=== PATIENT | female | born 1940 | race African-American/Black ===

== ENCOUNTER 2021-01-21 22:18 | Inpatient (IN) | payer MEDICARE, MEDICAID ==
[~2021-01-21] VITALS: Ht 157.5 cm; Wt 69.4 kg
[~2021-01-21 22:18] MED LIST: ASPI-1497 PO; BRIM10DR2 EACHEYE; CALC-1042 PO; CHOL400D7 PO; LOSA100T32 PO; MIRA25TA PO
[2021-01-21 22:30] VITALS: BP 112/47
[2021-01-21] MEDS ORDERED: ONDANSETRON HCL 4MG/2ML INJ IV PRN (23:30)
[2021-01-21] MEDS ORDERED: IPRATROPIUM/ALBUTEROL 0.5-3(2.5)MG/3ML NEB HHN PRN (23:30)
[2021-01-21] MEDS ORDERED: GUAIFENESIN 200MG/10ML SUGAR FREE UDC PO PRN (23:30)
[2021-01-22] MEDS: HYDRALAZINE HCL 50MG TABLET PO SCH ×3 (05:51→21:13)
[2021-01-22 06:50] LABS: BASOPHILS % 0.6 % (0.0-2.0); EOSINOPHILS % 5.4 % (0.0-5.0); HEMATOCRIT. 32.6 % (36.0-48.0); HEMOGLOBIN. 11.3 g/dL (12.0-16.0); LYMPHOCYTES % 21.2 % (20.0-50.0); MEAN PLATELET VOLUME 8.2 fl (7.4-10.4); MONOCYTES % 14.3 % (2.0-8.0); NEUTROPHILS % 58.5 % (40.0-76.0); PLATELET 210 x1000/uL (130-400); RED BLOOD CELL COUNT 3.75 mill/uL (4.2-5.4); RED CELL DISTRIBUTION WIDTH 13.8 % (11.6-14.6)
[2021-01-22 08:00] VITALS: BP 127/60
[2021-01-22] MEDS: TOBRAMYCIN/DEXAMETH 0.1/0.3% OPHTH SUSP 2.5ML BOTHEYE SCH ×2 (08:36→17:00)
[2021-01-22] MEDS: POLYETHYLENE GLYCOL 3350 (17GM) 1 DOSE PACK PO SCH (08:37)
[2021-01-22] MEDS: ENOXAPARIN 30MG/0.3ML SYR SUBCUT SCH (08:37)
[2021-01-22] MEDS: DOCUSATE SODIUM 100MG CAPSULE PO PRN (08:38)
[2021-01-22] MEDS: LABETALOL HCL 100MG TABLET PO SCH ×2 (08:38→21:13)
[2021-01-22] MEDS: FAMOTIDINE 20MG/2ML VIAL IV SCH (08:38)
[2021-01-22] MEDS: LOSARTAN POTASSIUM 100 MG TABLET PO SCH (08:38)
[2021-01-22] MEDS: ERYTHROMYCIN BASE 0.5% OPHTH OINT 3.5GM BOTHEYE SCH ×2 (08:39→17:00)
[2021-01-22] MEDS: SODIUM CHLORIDE 0.9% 1,000 ML IV SCH (12:16)
[2021-01-22 20:00] VITALS: BP 117/54
[2021-01-23] MEDS: SODIUM CHLORIDE 0.9% 1,000 ML IV SCH ×2 (01:34→20:54)
[2021-01-23] MEDS: HYDRALAZINE HCL 50MG TABLET PO SCH ×3 (05:07→21:00)
[2021-01-23 08:00] VITALS: BP 143/63
[2021-01-23] MEDS: LOSARTAN POTASSIUM 100 MG TABLET PO SCH (09:19)
[2021-01-23] MEDS: ENOXAPARIN 30MG/0.3ML SYR SUBCUT SCH (09:19)
[2021-01-23] MEDS: LABETALOL HCL 100MG TABLET PO SCH ×2 (09:19→20:55)
[2021-01-23] MEDS: POLYETHYLENE GLYCOL 3350 (17GM) 1 DOSE PACK PO SCH (09:19)
[2021-01-23] MEDS: DOCUSATE SODIUM 100MG CAPSULE PO PRN (09:19)
[2021-01-23] MEDS: FAMOTIDINE 20MG/2ML VIAL IV SCH (09:19)
[2021-01-23] MEDS: ERYTHROMYCIN BASE 0.5% OPHTH OINT 3.5GM BOTHEYE SCH ×2 (09:20→18:15)
[2021-01-23] MEDS: TOBRAMYCIN/DEXAMETH 0.1/0.3% OPHTH SUSP 2.5ML BOTHEYE SCH ×2 (09:20→18:14)
[2021-01-23 10:24] LABS: HEMATOCRIT. 33.1 % (36.0-48.0); HEMOGLOBIN. 11.4 g/dL (12.0-16.0); MEAN CORPUSCULAR HEMOGLOBIN 30.2 pg (28.0-32.0); MEAN CORPUSCULAR VOLUME 87.7 fL (81.0-99.0); MEAN PLATELET VOLUME 8.2 fl (7.4-10.4); PLATELET 250 x1000/uL (130-400); RED BLOOD CELL COUNT 3.78 mill/uL (4.2-5.4); RED CELL DISTRIBUTION WIDTH 13.9 % (11.6-14.6)
[2021-01-23 10:38] LABS: CHLORIDE 105 mEq/L (98-107)
[2021-01-23 14:16] LABS: PLATELET ESTIMATE NORMAL
[2021-01-23 20:00] VITALS: BP 122/52
[2021-01-24] MEDS: HYDRALAZINE HCL 50MG TABLET PO SCH ×3 (06:08→21:01)
[2021-01-24 08:08] VITALS: BP 140/62
[2021-01-24] MEDS: ENOXAPARIN 30MG/0.3ML SYR SUBCUT SCH (08:19)
[2021-01-24] MEDS: FAMOTIDINE 20MG TABLET PO SCH (08:19)
[2021-01-24] MEDS: LABETALOL HCL 100MG TABLET PO SCH ×2 (08:19→20:48)
[2021-01-24] MEDS: POLYETHYLENE GLYCOL 3350 (17GM) 1 DOSE PACK PO SCH (08:19)
[2021-01-24] MEDS: LOSARTAN POTASSIUM 100 MG TABLET PO SCH (08:19)
[2021-01-24] MEDS: ERYTHROMYCIN BASE 0.5% OPHTH OINT 3.5GM BOTHEYE SCH ×2 (08:20→17:15)
[2021-01-24] MEDS: TOBRAMYCIN/DEXAMETH 0.1/0.3% OPHTH SUSP 2.5ML BOTHEYE SCH ×2 (08:20→17:15)
[2021-01-24] MEDS: SODIUM CHLORIDE 0.9% 1,000 ML IV SCH (08:20)
[2021-01-24 11:00] LABS: CREATINE KINASE 72 IU/L (26-192)
[2021-01-24 17:17] LABS: CLARITY URINE CLEAR (CLEAR); COLOR URINE YELLOW (YELLOW); KETONES URINE NEGATIVE (NEGATIVE); LEUKOCYTE ESTERASE URINE NEGATIVE (NEGATIVE); NITRITE URINE NEGATIVE (NEGATIVE); OCCULT BLOOD URINE NEGATIVE (NEGATIVE); PROTEIN URINE NEGATIVE (NEGATIVE); SPECIFIC GRAVITY URINE 1.011 (1.005-1.030); UROBILINOGEN URINE 0.2 E.U./dL (0.2-1.0)
[2021-01-24 20:00] VITALS: BP 152/63
[2021-01-24] MEDS: ACETAMINOPHEN 325MG TABLET PO PRN (23:33)
[2021-01-25] MEDS: HYDRALAZINE HCL 50MG TABLET PO SCH ×3 (05:58→21:52)
[2021-01-25 08:00] VITALS: BP 162/55
[2021-01-25] MEDS: FAMOTIDINE 20MG TABLET PO SCH (09:08)
[2021-01-25] MEDS: POLYETHYLENE GLYCOL 3350 (17GM) 1 DOSE PACK PO SCH (09:09)
[2021-01-25] MEDS: ENOXAPARIN 30MG/0.3ML SYR SUBCUT SCH (09:09)
[2021-01-25] MEDS: LABETALOL HCL 100MG TABLET PO SCH ×2 (09:09→21:51)
[2021-01-25] MEDS: TOBRAMYCIN/DEXAMETH 0.1/0.3% OPHTH SUSP 2.5ML BOTHEYE SCH ×2 (09:10→16:30)
[2021-01-25] MEDS: ERYTHROMYCIN BASE 0.5% OPHTH OINT 3.5GM BOTHEYE SCH ×2 (09:10→16:29)
[2021-01-25] MEDS: CLONIDINE 0.1MG TABLET PO PRN (09:26)
[2021-01-25 10:04] LABS: BASOPHILS % 0.9 % (0.0-2.0); EOSINOPHILS % 8.8 % (0.0-5.0); HEMATOCRIT. 32.5 % (36.0-48.0); HEMOGLOBIN. 11.3 g/dL (12.0-16.0); MEAN CORPUSCULAR HEMOGLOBIN 31.3 pg (28.0-32.0); MEAN CORPUSCULAR VOLUME 89.8 fL (81.0-99.0); MEAN PLATELET VOLUME 8.8 fl (7.4-10.4); MONOCYTES % 11.2 % (2.0-8.0); NEUTROPHILS % 58.1 % (40.0-76.0); PLATELET 250 x1000/uL (130-400); RED BLOOD CELL COUNT 3.61 mill/uL (4.2-5.4); RED CELL DISTRIBUTION WIDTH 13.6 % (11.6-14.6)
[2021-01-25] MEDS: ACETAMINOPHEN 325MG TABLET PO PRN (12:49)
[2021-01-25 20:00] VITALS: BP 142/98
[2021-01-26] MEDS: HYDRALAZINE HCL 50MG TABLET PO SCH (06:02)
[2021-01-26] MEDS: ACETAMINOPHEN 325MG TABLET PO PRN ×2 (06:08→08:09)
[2021-01-26 07:11] LABS: BASOPHILS % 1.5 % (0.0-2.0); EOSINOPHILS % 4.4 % (0.0-5.0); HEMOGLOBIN. 10.8 g/dL (12.0-16.0); LYMPHOCYTES % 21.8 % (20.0-50.0); MEAN CORPUSCULAR HEMOGLOBIN 30.5 pg (28.0-32.0); MEAN CORPUSCULAR VOLUME 90.4 fL (81.0-99.0); MEAN PLATELET VOLUME 8.4 fl (7.4-10.4); MONOCYTES % 10.6 % (2.0-8.0); NEUTROPHILS % 61.7 % (40.0-76.0); PLATELET 285 x1000/uL (130-400); RED BLOOD CELL COUNT 3.54 mill/uL (4.2-5.4); RED CELL DISTRIBUTION WIDTH 13.8 % (11.6-14.6)
[2021-01-26 07:29] VITALS: BP 159/64
[2021-01-26] MEDS: FAMOTIDINE 20MG TABLET PO SCH (08:08)
[2021-01-26] MEDS: POLYETHYLENE GLYCOL 3350 (17GM) 1 DOSE PACK PO SCH (08:08)
[2021-01-26] MEDS: LABETALOL HCL 100MG TABLET PO SCH ×2 (08:08→20:59)
[2021-01-26] MEDS: ENOXAPARIN 30MG/0.3ML SYR SUBCUT SCH (08:23)
[2021-01-26] MEDS: HYDRALAZINE HCL 100MG TABLET PO SCH ×2 (15:44→20:59)
[2021-01-26 20:00] VITALS: BP 146/56
[2021-01-27] MEDS: HYDRALAZINE HCL 100MG TABLET PO SCH ×3 (05:47→22:15)
[2021-01-27 07:38] VITALS: BP 143/66
[2021-01-27] MEDS: POLYETHYLENE GLYCOL 3350 (17GM) 1 DOSE PACK PO SCH (08:10)
[2021-01-27] MEDS: FAMOTIDINE 20MG TABLET PO SCH (08:10)
[2021-01-27] MEDS: LABETALOL HCL 100MG TABLET PO SCH ×2 (08:10→22:14)
[2021-01-27] MEDS: ENOXAPARIN 30MG/0.3ML SYR SUBCUT SCH (08:11)
[2021-01-27 13:11] LABS: ANTI-NUCLEAR ANTIBODIES DIRECT Negative (Negative)
[2021-01-27 19:26] LABS: CLARITY URINE TURBID (CLEAR); COLOR URINE RED (YELLOW); KETONES URINE NEGATIVE (NEGATIVE); LEUKOCYTE ESTERASE URINE 3+ (NEGATIVE); NITRITE URINE NEGATIVE (NEGATIVE); OCCULT BLOOD URINE 3+ (NEGATIVE); PROTEIN URINE 2+ (NEGATIVE); SPECIFIC GRAVITY URINE 1.011 (1.005-1.030); UROBILINOGEN URINE 0.2 E.U./dL (0.2-1.0)
[2021-01-27 20:00] VITALS: BP 125/57
[2021-01-27] MEDS: ACETAMINOPHEN 325MG TABLET PO PRN (22:20)
[2021-01-27] MEDS ORDERED: NITROFURANTOIN 100MG M/M CAPSULE PO SCH (22:45)
[2021-01-27] MEDS: SULFAMETHOXAZOLE/TRIMETHOPRIM 400/80MG TAB PO SCH (23:49)
[2021-01-28] MEDS: HYDRALAZINE HCL 100MG TABLET PO SCH ×3 (06:07→21:15)
[2021-01-28 07:14] LABS: BASOPHILS % 0.7 % (0.0-2.0); EOSINOPHILS % 4.1 % (0.0-5.0); HEMATOCRIT. 30.4 % (36.0-48.0); HEMOGLOBIN. 10.3 g/dL (12.0-16.0); LYMPHOCYTES % 19.5 % (20.0-50.0); MEAN CORPUSCULAR HEMOGLOBIN 29.6 pg (28.0-32.0); MEAN CORPUSCULAR VOLUME 87.8 fL (81.0-99.0); MEAN PLATELET VOLUME 8.1 fl (7.4-10.4); MONOCYTES % 10.5 % (2.0-8.0); NEUTROPHILS % 65.2 % (40.0-76.0); PLATELET 320 x1000/uL (130-400); RED BLOOD CELL COUNT 3.46 mill/uL (4.2-5.4); RED CELL DISTRIBUTION WIDTH 13.8 % (11.6-14.6)
[2021-01-28] MEDS: SULFAMETHOXAZOLE/TRIMETHOPRIM 400/80MG TAB PO SCH ×2 (08:13→21:14)
[2021-01-28] MEDS: POLYETHYLENE GLYCOL 3350 (17GM) 1 DOSE PACK PO SCH (08:13)
[2021-01-28] MEDS: LABETALOL HCL 100MG TABLET PO SCH ×2 (08:13→21:14)
[2021-01-28] MEDS: FAMOTIDINE 20MG TABLET PO SCH (08:13)
[2021-01-28 08:19] VITALS: BP 151/67
[2021-01-28 13:45] VITALS: BP 126/45
[2021-01-28] MEDS ORDERED: DIPHENHYDRAMINE 25MG CAPSULE PO PRN (16:15)
[2021-01-28 20:00] VITALS: BP 152/66
[2021-01-29] MEDS: HYDRALAZINE HCL 100MG TABLET PO SCH ×3 (05:40→21:01)
[2021-01-29 08:15] VITALS: BP 158/68
[2021-01-29] MEDS: LABETALOL HCL 100MG TABLET PO SCH ×2 (09:08→21:02)
[2021-01-29] MEDS: SULFAMETHOXAZOLE/TRIMETHOPRIM 400/80MG TAB PO SCH ×2 (09:08→21:01)
[2021-01-29] MEDS: FAMOTIDINE 20MG TABLET PO SCH (09:08)
[2021-01-29] MEDS: POLYETHYLENE GLYCOL 3350 (17GM) 1 DOSE PACK PO SCH (09:09)
[2021-01-29] MEDS: ENOXAPARIN 30MG/0.3ML SYR SUBCUT SCH (09:09)
[2021-01-29 20:00] VITALS: BP 147/67
[2021-01-29 23:00] VITALS: BP 137/61
[2021-01-30] MEDS: HYDRALAZINE HCL 100MG TABLET PO SCH ×3 (05:39→23:59)
[2021-01-30] MEDS: CLONIDINE 0.1MG TABLET PO PRN (05:41)
[2021-01-30 06:55] VITALS: BP 134/59
[2021-01-30] MEDS: SULFAMETHOXAZOLE/TRIMETHOPRIM 400/80MG TAB PO SCH ×2 (08:35→20:43)
[2021-01-30] MEDS: LABETALOL HCL 100MG TABLET PO SCH ×2 (08:35→20:44)
[2021-01-30] MEDS: POLYETHYLENE GLYCOL 3350 (17GM) 1 DOSE PACK PO SCH (08:36)
[2021-01-30] MEDS: ENOXAPARIN 30MG/0.3ML SYR SUBCUT SCH (08:36)
[2021-01-30] MEDS: FAMOTIDINE 20MG TABLET PO SCH (08:36)
[2021-01-30 14:18] LABS: BASOPHILS % 1.1 % (0.0-2.0); EOSINOPHILS % 3.7 % (0.0-5.0); HEMATOCRIT. 29.5 % (36.0-48.0); HEMOGLOBIN. 10.2 g/dL (12.0-16.0); LYMPHOCYTES % 18.1 % (20.0-50.0); MEAN CORPUSCULAR HEMOGLOBIN 31.1 pg (28.0-32.0); MEAN CORPUSCULAR VOLUME 89.8 fL (81.0-99.0); MEAN PLATELET VOLUME 7.9 fl (7.4-10.4); MONOCYTES % 12.8 % (2.0-8.0); NEUTROPHILS % 64.3 % (40.0-76.0); PLATELET 284 x1000/uL (130-400); RED BLOOD CELL COUNT 3.28 mill/uL (4.2-5.4); RED CELL DISTRIBUTION WIDTH 13.7 % (11.6-14.6)
[2021-01-30] MEDS ORDERED: DOXAZOSIN MESYLATE 2MG TABLET PO NR (14:45)
[2021-01-30 20:00] VITALS: BP 125/51
[2021-01-31] MEDS: HYDRALAZINE HCL 100MG TABLET PO SCH ×2 (05:44→13:19)
[2021-01-31 07:44] VITALS: BP 157/64
[2021-01-31] MEDS: POLYETHYLENE GLYCOL 3350 (17GM) 1 DOSE PACK PO SCH (08:52)
[2021-01-31] MEDS: ENOXAPARIN 30MG/0.3ML SYR SUBCUT SCH (08:52)
[2021-01-31] MEDS: SULFAMETHOXAZOLE/TRIMETHOPRIM 400/80MG TAB PO SCH (08:53)
[2021-01-31] MEDS: FAMOTIDINE 20MG TABLET PO SCH (08:53)
[2021-01-31] MEDS: LABETALOL HCL 100MG TABLET PO SCH (08:53)
[2021-01-31 10:44] VITALS: BP 138/67
[2021-01-31] MEDS ORDERED: HYDR100T26 PO (11:01)
[2021-01-31] MEDS ORDERED: LABE100T5 PO (11:02)
[2021-01-31] MEDS ORDERED: POLY17PO3 PO (11:02)
[2021-01-31] MEDS ORDERED: FAMO-135 PO (11:03)
[2021-01-31] MEDS: ACETAMINOPHEN 325MG TABLET PO PRN (11:11)
== END 2021-01-31 14:07 | disposition home health service (06) | DRG 65 ==
PROVIDERS: ADMIT Psychiatry & Neurology Neurology; ATTEND Hospitalist
DX: I63.9 Cerebral infarction, unspecified (principal); N17.9 Acute kidney failure, unspecified; N39.0 Urinary tract infection, site not specified; I65.21 Occlusion and stenosis of right carotid artery; K59.00 Constipation, unspecified; I25.10 Atherosclerotic heart disease of native coronary artery without angina pectoris; I12.9 Hypertensive chronic kidney disease with stage 1 through stage 4 chronic kidney disease, or unspecified chronic kidney disease; Z96.642 Presence of left artificial hip joint; R32 Unspecified urinary incontinence; N18.9 Chronic kidney disease, unspecified; B96.20 Unspecified Escherichia coli [E. coli] as the cause of diseases classified elsewhere; B96.89 Other specified bacterial agents as the cause of diseases classified elsewhere; F39 Unspecified mood [affective] disorder; G31.84 Mild cognitive impairment of uncertain or unknown etiology; H40.9 Unspecified glaucoma; R53.1 Weakness; S10.93XA Contusion of unspecified part of neck, initial encounter; X58.XXXA Exposure to other specified factors, initial encounter; Z79.82 Long term (current) use of aspirin; Z91.81 History of falling; Z79.899 Other long term (current) drug therapy; Y93.89 Activity, other specified; Y92.89 Other specified places as the place of occurrence of the external cause; Y99.8 Other external cause status; Z71.89 Other specified counseling
CPT/HCPCS: 36415; 76770; 80048; 80053; 81003; 82550; 82962; 85025; 86038; 86160; 87077; 87186; 92523; 92610; 97110; 97112; 97116; 97162; 97166; 97530; 97535; A6261; J1650; J3490; Q0163; A4315